=== PATIENT | female | born 1950 ===

== ENCOUNTER → 2018-01-11 | Outpatient (CLI) | payer SELFPAY ==
[2018-01-11 15:49] LABS: Percent Saturation 24.1 % (15.0-50.0)
== END | disposition home or self-care (01) ==
LOC: LAB 11:00 → LAB SHORT 11:00
PROVIDERS: Internal Medicine Hematology & Oncology
DX: D51.8 Other vitamin B12 deficiency anemias (principal)
CPT/HCPCS: 82607; 82746; 83540; 83550

== ENCOUNTER 2018-03-14 11:09 | Day surgery (SDC) | payer MEDICARE, OTHER ==
[~2018-03-14] VITALS: Ht 160 cm; Wt 58.2 kg
[~2018-03-14 11:09] MED LIST: ALBU90OI INH; Accuneb1.25 MG/3; CLON.5 PO; FLUT1DIS2 INH; Omeprazole20 M1 PO; THYR60 PO
== END 2018-03-14 14:35 | disposition home or self-care (01) ==
LOC: ORSCSDS 11:09
PROVIDERS: Student in an Organized Health Care Education/Training Program
PROC: 0DB68ZX Excision of Stomach, Via Natural or Artificial Opening Endoscopic, Diagnostic (ICD-10-PCS; principal; 2018-03-14 13:30)
PROC: 0DBL8ZX Excision of Transverse Colon, Via Natural or Artificial Opening Endoscopic, Diagnostic (ICD-10-PCS; principal; 2018-03-14 13:30)
PROC: 0DB58ZX Excision of Esophagus, Via Natural or Artificial Opening Endoscopic, Diagnostic (ICD-10-PCS; principal; 2018-03-14 13:30)
DX: K21.9 Gastro-esophageal reflux disease without esophagitis (principal); R13.10 Dysphagia, unspecified; K29.70 Gastritis, unspecified, without bleeding; Z86.010 Personal history of colon polyps; D12.3 Benign neoplasm of transverse colon; K64.8 Other hemorrhoids; J44.9 Chronic obstructive pulmonary disease, unspecified; G47.33 Obstructive sleep apnea (adult) (pediatric); E03.9 Hypothyroidism, unspecified; M79.7 Fibromyalgia; Z79.899 Other long term (current) drug therapy
CPT/HCPCS: 88305; 88342; J2250; J2405; J3010